=== PATIENT | male | born 1930 | race Caucasian/White ===

== ENCOUNTER 2017-05-29 19:19 | Emergency (ER) | payer MEDICARE ==
[~2017-05-29 19:19] MED LIST: DIGO0.12 PO; FURO20TA PO; K-TA10TA5 PO; METO25 PO; WARF5TAB PO
--- NOTE | 2017-05-29 19:41 | PD ---
HPI Chief Complaint: fall, knee pain Time Seen by Provider: 19:33 Travel History International Travel<30 days: No Contact w/Intl Traveler<30days: No History of Present Illness HPI Patient 87-year-old male presents emergency department for ground-level fall. Patient states he was walking lost his footing and fell forward landing on both knees. EMS stated that they had been noticing some increased confusion and maybe some repetitive questioning. The patient is alert and awake and oriented and able to provide his own history. He states he was walking and just lost his footing and fell down to his knees. Denies any headache chest pain shortness breath abdominal pain loss of consciousness. He denies any use of blood thinners, PFSH Past Medical History Cancer: No Cardiovascular Problems: Yes (LEAKY VALVE, "FLUTTERING") Diabetes: No Endocrine: No Genitourinary: No Hepatitis: No Hiatal Hernia: No Immune Disorder: No Musculoskeletal: No Neurologic: No Psychiatric: Yes (CLAUSTRAPHOBIA) Respiratory: No Thyroid Disease: No Past Surgical History Abdominal Surgery: Yes (appy) AICD: No Body Medical Devices: none Cardiac Surgery: No Ear Surgery: No Endocrine Surgery: No Eye Surgery: No Genitourinary Surgery: Yes (HYDROCELECTOMY) Joint Replacement: No Oral Surgery: No Pacemaker: No Thoracic Surgery: No Social History Tobacco Use: No Substance Use: No Allergies-Medications (Allergen,Severity, Reaction): Coded Allergies: No Known Allergies (Unverified , 05/29/17) Reported Meds & Prescriptions Reported Meds & Active Scripts Active Reported Warfarin Sodium 5 mg (Warfarin Sodium) 5 Mg Tab 2.5 Mg PO WEDNESDAYS Warfarin Sodium 5 mg (Warfarin Sodium) 5 Mg Tab 5 Mg PO DAILY EXCEPT WED K-Tabs (Potassium Chloride) 10 Meq Tab 10 Meq PO DAILY Digoxin 0.125 mg (Digoxin) 0.125 Mg Tab 0.125 Mg PO DAILY Furosemide 20 Mg Tab 20 Mg PO DAILY Metoprolol Tartrate 25 mg (Metoprolol Tartrate) 25 Mg Tab 25 Mg PO BID Review of Systems Except as stated in HPI: all other systems reviewed are Neg Physical Exam Narrative GENERAL: [Well-developed well-nourished no obvious distress SKIN: Focused skin assessment warm/dry. HEAD: Atraumatic. Normocephalic. EYES: Pupils equal and round. No scleral icterus. No injection or drainage. ENT: No nasal bleeding or discharge. Mucous membranes pink and moist. NECK: Trachea midline. No JVD. CARDIOVASCULAR: Regular rate and rhythm. No murmur appreciated. RESPIRATORY: No accessory muscle use. Clear to auscultation. Breath sounds equal bilaterally. GASTROINTESTINAL: Abdomen soft, non-tender, nondistended. Hepatic and splenic margins not palpable. MUSCULOSKELETAL: No obvious deformities. No clubbing. No cyanosis. No edema. Full nontender range of motion of all joints bilaterally lower extremities bilateral upper tremors. Compartments are soft, pulses motor and sensory intact distally. No midline CT or L-spine tenderness. NEUROLOGICAL: Awake and alert. No obvious cranial nerve deficits. Motor grossly within normal limits. Normal speech. PSYCHIATRIC: Appropriate mood and affect; insight and judgment normal. Data Data Last Documented VS Vital Signs Date Time Temp Pulse Resp B/P (MAP) Pulse Ox O2 Delivery O2 Flow Rate FiO2 05/29/17 19:52 65 18 96 Room Air 05/29/17 19:46 98.3 126/67 (86) Orders Orders Electrocardiogram (05/29/17 19:33) Complete Blood Count With Diff (05/29/17 19:33) Comprehensive Metabolic Panel (05/29/17 19:33) B-Type Natriuretic Peptide (05/29/17 19:33) Ckmb (Isoenzyme) Profile (05/29/17 19:33) Troponin I (05/29/17 19:33) Prothrombin Time / Inr (Pt) (05/29/17 19:33) Urinalysis - C+S If Indicated (05/29/17 19:33) Chest, Single Ap (05/29/17 19:33) Ct Brain W/O Iv Contrast(Rout) (05/29/17 19:33) Ct Cerv Spine W/O Contrast (05/29/17 19:33) Ecg Monitoring (05/29/17 19:33) Iv Access Insert/Monitor (05/29/17 19:33) Oximetry (05/29/17 19:33) Sodium Chloride 0.9% Flush (Ns Flush) (05/29/17 19:45) Knee, Complete (4vws) (05/29/17 ) Knee, Complete (4vws) (05/29/17 ) Labs Laboratory Tests Test 05/29/17 19:41 05/29/17 21:30 White Blood Count 10.2 TH/MM3 Red Blood Count 4.19 MIL/MM3 Hemoglobin 13.9 GM/DL Hematocrit 40.7 % Mean Corpuscular Volume 97.1 FL Mean Corpuscular Hemoglobin 33.2 PG Mean Corpuscular Hemoglobin Concent 34.2 % Red Cell Distribution Width 13.9 % Platelet Count 128 TH/MM3 Mean Platelet Volume 7.7 FL Neutrophils (%) (Auto) 79.1 % Lymphocytes (%) (Auto) 12.0 % Monocytes (%) (Auto) 7.9 % Eosinophils (%) (Auto) 0.3 % Basophils (%) (Auto) 0.7 % Neutrophils # (Auto) 8.1 TH/MM3 Lymphocytes # (Auto) 1.2 TH/MM3 Monocytes # (Auto) 0.8 TH/MM3 Eosinophils # (Auto) 0.0 TH/MM3 Basophils # (Auto) 0.1 TH/MM3 CBC Comment DIFF FINAL Differential Comment Prothrombin Time 27.4 SEC Prothromb Time International Ratio 2.4 RATIO Blood Urea Nitrogen 13 MG/DL Creatinine 0.67 MG/DL Random Glucose 103 MG/DL Total Protein 6.5 GM/DL Albumin 3.5 GM/DL Calcium Level 8.1 MG/DL Alkaline Phosphatase 100 U/L Aspartate Amino Transf (AST/SGOT) 25 U/L Alanine Aminotransferase (ALT/SGPT) 24 U/L Total Bilirubin 0.5 MG/DL Sodium Level 127 MEQ/L Potassium Level 3.6 MEQ/L Chloride Level 92 MEQ/L Carbon Dioxide Level 20.2 MEQ/L Anion Gap 15 MEQ/L Estimat Glomerular Filtration Rate 113 ML/MIN Total Creatine Kinase 96 U/L Troponin I 0.03 NG/ML B-Type Natriuretic Peptide 172 PG/ML Urine Color YELLOW Urine Turbidity CLEAR Urine pH 5.5 Urine Specific [place]re[place] 1.011 Urine Protein NEG mg/dL Urine Glucose (UA) NEG mg/dL Urine Ketones NEG mg/dL Urine Occult Blood NEG Urine Nitrite NEG Urine Bilirubin NEG Urine Urobilinogen LESS THAN 2.0 MG/DL Urine Leukocyte Esterase NEG Urine RBC 2 /hpf Urine WBC LESS THAN 1 /hpf Microscopic Urinalysis Comment CULT NOT INDICATED MDM Medical Decision Making Medical Screen Exam Complete: Yes Emergency Medical Condition: Yes Differential Diagnosis Fall, knee pain, head injury, neck injury. Narrative Course patient arrives to the emergency murmur complaining of bilateral knee pain after slip and fall. Initial workup including EKG labs is fairly unremarkable except for a sodium of 127. Patient's CAT scan of head and C-spine negative, x- rays negative: Last [address] 05/29/171932 Signed Impressions: Service Date/Time: May 20:07 - CONCLUSION: 1. No bleed or other acute intracranial abnormality. 2. Chronic white matter changes. Baljinder Myers MD Chest X-Ray 05/29/171932 Signed Impressions: Service Date/Time: , May 29, 2017 20:23 - CONCLUSION: 1. No evidence of acute cardiopulmonary disease. 2. Mild compensated cardiomegaly. Baljinder Myers MD Cervical Spine CT 05/29/171932 Signed Impressions: Service Date/Time: , May 29, 2017 20:09 - CONCLUSION: Intact cervical spine. Degenerative changes as above. Baljinder Myers MD Knee X-Ray 05/29/17 0000 Signed Impressions: Service Date/Time: May 20:29 - CONCLUSION: No fracture, subluxation or significant joint effusion seen of the right knee. Mild degenerative changes and osteopenia. Baljinder Myers MD Knee X-Ray 05/29/17 0000 Signed Impressions: Service Date/Time: May 20:28 - CONCLUSION: Osteopenia and mild degenerative changes. No fracture or other acute abnormality seen of the left knee. Baljinder Myers MD Patient was discussed with Dr. Salter regarding the sodium, he states that patient and he is familiar with always has a somewhat low sodium. He would like to follow-up the patient in the office. At this point he is alert and awake and oriented. He informs me that in the near future there may be more social interventions coming to this patient possibly placement. The is comfortable taking her home at this time. On the subject of his altered mental status, it appears according to during this is chronic intermittent and gradually worsening. Consider dementia. Diagnosis Primary Impression: Fall Additional Impression: Knee pain Disposition: 01 DISCHARGE HOME Condition: Stable Pablito Sargent MD May 29, 2017 19:41
[2017-05-29] MEDS ORDERED: SODIUM CHLORIDE 0.9% FLUSH 10 ML FLUSH IVF PRN (19:45)
[2017-05-29 19:46] VITALS: BP 126/67; PULSE 65; RESP 18; TEMP 98.3; O2SAT 96
[2017-05-29 19:55] LABS: AUTOMATED NEUTROPHIL # 8.1 TH/MM3 (1.8-7.7); BASOPHIL # 0.1 TH/MM3 (0-0.2); BASOPHIL % 0.7 % (0.0-2.0); EOSINOPHIL % 0.3 % (0.0-4.0); HEMATOCRIT 40.7 % (39.0-51.0); HEMO FLAGS DIFF FINAL; LYMPHOCYTE # 1.2 TH/MM3 (1.0-4.8); MEAN CELL VOLUME 97.1 FL (80.0-100.0); MEAN CORPUSCULAR HEMOGLOBIN 33.2 PG (27.0-34.0); MEAN CORPUSCULAR HGB CONC 34.2 % (32.0-36.0); MONO % 7.9 % (0.0-8.0); NEUT % 79.1 % (16.0-70.0); PLATELET COUNT 128 TH/MM3 (150-450); RED BLOOD COUNT 4.19 MIL/MM3 (4.50-5.90); RED CELL DISTRIBUTION WIDTH 13.9 % (11.6-17.2); WHITE BLOOD COUNT 10.2 TH/MM3 (4.0-11.0)
[2017-05-29 20:05] LABS: INTERNATIONAL NORMALIZED RATIO 2.4 RATIO; PROTHROMBIN TIME - PATIENT 27.4 SEC (9.8-11.6)
[2017-05-29 20:26] LABS: ALT (GPT) 24 U/L (12-78); ANION GAP 15 MEQ/L (5-15); AST (GOT) 25 U/L (15-37); BICARBONATE 20.2 MEQ/L (21.0-32.0); BLOOD UREA NITROGEN 13 MG/DL (7-18); CHLORIDE 92 MEQ/L (98-107); GLOMERULAR FILTRATION RATE 113 ML/MIN (>89); POTASSIUM 3.6 MEQ/L (3.5-5.1); SODIUM (NA) 127 MEQ/L (136-145)
[2017-05-29 20:30] LABS: ALKALINE PHOSPHATASE 100 U/L (45-117); TOTAL BILIRUBIN ADULT 0.5 MG/DL (0.2-1.0)
[2017-05-29 20:31] LABS: CREATINE KINASE 96 U/L (39-308)
--- NOTE | 2017-05-29 20:38 | RADRPT ---
EXAM DATE/TIME: 05/29/2017 20:07 [facility] COMPARISON: No previous studies available for comparison. INDICATIONS : Dizziness fall. RADIATION DOSE: 69.15 CTDIvol (mGy) MEDICAL HISTORY : Hypertension. Chronic obstructive pulmonary disease. Leaky heart valve SURGICAL HISTORY : Appendectomy. ENCOUNTER: Initial ACUITY: 1 day PAIN SCALE: 0/10 LOCATION: cranial TECHNIQUE: Multiple contiguous axial images were obtained of the head. Using automated exposure control and adj ustment of the mA and/or kV according to patient size, radiation dose was kept as low as reasonably a chievable to obtain optimal diagnostic quality images. DICOM format image data is available electro nically for review and comparison. FINDINGS: CEREBRUM: The ventricles are normal for age. No evidence of midline shift, mass lesion, hemorrhage or acute in farction. No extra-axial fluid collections are seen. Chronic symmetric low attenuation seen in the p eriventricular white matter. POSTERIOR FOSSA: The cerebellum and brainstem are intact. The 4th ventricle is midline. The cerebellopontine angle i s unremarkable. EXTRACRANIAL: The visualized portion of the orbits is intact. SKULL: The calvaria is intact. No evidence of skull fracture. CONCLUSION: 1. No bleed or other acute intracranial abnormality. 2. Chronic white matter changes. Baljinder Myers MD on May 29, 2017 at 20:36 Board Certified Radiologist. This report was verified electronically.
--- NOTE | 2017-05-29 20:45 | RADRPT ---
EXAM DATE/TIME: 05/29/2017 20:09 [facility] COMPARISON: No previous studies available for comparison. INDICATIONS : Dizzy fall today. RADIATION DOSE: 36.35 CTDIvol (mGy) MEDICAL HISTORY : Hypertension. Chronic obstructive pulmonary disease. Leaky heart valve SURGICAL HISTORY : Appendectomy. ENCOUNTER: Initial ACUITY: 1 day PAIN SCALE: 0/10 LOCATION: neck TECHNIQUE: Volumetric scanning of the cervical spine was performed. Multiplanar reconstructions in the sagittal, coronal and oblique axial planes were performed. Using automated exposure control and adjustment o f the mA and/or kV according to patient size, radiation dose was kept as low as reasonably achievable to obtain optimal diagnostic quality images. DICOM format image data is available electronically f or review and comparison. FINDINGS: Mild degenerative dextroconvex curvature seen of the cervical spine. No subluxation. Vertebral bodies have normal height. No cortical break or trabecular disruption. 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 Multilevel disc space narrowing with uncovertebral and facet osteoarthritis noted, moderate at C3/C4, C5/C6 and C6/C7, severe at C4/C5. There is associated left side predominant foraminal stenosis at C3 /C4 and C4/C5 and mostly right foraminal stenosis at C5/C6 and C6/C7. No high-grade spinal stenosis d emonstrated. Don't see any evidence of an acute disc herniation. CONCLUSION: Intact cervical spine. Degenerative changes as above. Baljinder Myers MD on May 29, 2017 at 20:41 Board Certified Radiologist. This report was verified electronically.
--- NOTE | 2017-05-29 20:57 | RADRPT ---
EXAM DATE/TIME: 05/29/2017 20:23 [facility] COMPARISON: No previous studies available for comparison. INDICATIONS : Patient states he fell today, chest pain. MEDICAL HISTORY : None. SURGICAL HISTORY : None. ENCOUNTER: Initial ACUITY: 1 day PAIN SCORE: 0/10 LOCATION: Bilateral chest FINDINGS: No infiltrate, effusion or pneumothorax. Visualized osseous structures are grossly intact. There is m ild cardiomegaly. CONCLUSION: 1. No evidence of acute cardiopulmonary disease. 2. Mild compensated cardiomegaly. Baljinder Myers MD on May 29, 2017 at 20:55 Board Certified Radiologist. This report was verified electronically.
--- NOTE | 2017-05-29 21:03 | RADRPT ---
EXAM DATE/TIME: 05/29/2017 20:28 [facility] COMPARISON: No previous studies available for comparison. INDICATIONS : Patient states he fell, left knee pain. MEDICAL HISTORY : None. SURGICAL HISTORY : None. ENCOUNTER: Initial ACUITY: 1 day PAIN SCORE: 2/10 LOCATION: Left Knee FINDINGS: Bones are diffusely osteopenic. No fracture. No subluxation. There is mild medial and patellofemoral compartment osteoarthritis. No perceptible joint effusion. Arterial vascular calcification noted. CONCLUSION: Osteopenia and mild degenerative changes. No fracture or other acute abnormality seen of the left kne e. Baljinder Myers MD on May 29, 2017 at 21:01 Board Certified Radiologist. This report was verified electronically.
--- NOTE | 2017-05-29 21:04 | RADRPT ---
EXAM DATE/TIME: 05/29/2017 20:29 [facility] COMPARISON: No previous studies available for comparison. INDICATIONS : Patient states he fell today, right knee pain. MEDICAL HISTORY : None. SURGICAL HISTORY : None. ENCOUNTER: Initial ACUITY: 1 day PAIN SCORE: 2/10 LOCATION: Right Knee FINDINGS: No fracture or subluxation seen in the right knee. Bones are osteopenic. There is mild medial and pat ellofemoral common osteoarthritis. Diffuse arterial atherosclerosis noted. CONCLUSION: No fracture, subluxation or significant joint effusion seen of the right knee. Mild degenerative burroughs ges and osteopenia. Baljinder Myers MD on May 29, 2017 at 21:02 Board Certified Radiologist. This report was verified electronically.
[2017-05-29 22:09] LABS: BLOOD, URINE NEG (NEG); COMMENT (UR) CULT NOT INDICATED; CULTURE IF INDICATED CULT NOT INDICATED; GLUCOSE,URINE NEG (NEG); KETONE, URINE NEG (NEG); NITRITE,URINE NEG (NEG); PH, URINE 5.5 (5.0-8.5); URINE COLOR YELLOW (YELLW/STRAW)
--- NOTE | 2017-05-30 11:29 | EKG ---
Date Performed: 05/29/2017 Time Performed: 19:44:22 PTAGE: 87 years EKG: ATRIAL FIBRILLATION BORDERLINE LEFT AXIS DEVIATION POSSIBLE RIGHT VENTRICULAR CONDUCTION DE LAY MODERATE ST DEPRESSION ABNORMAL ECG NO PREVIOUS TRACING DOCTOR: Kaiser Delcid Interpretating Date/Time 05/30/2017 11:29:10
== END 2017-05-30 04:44 | disposition home or self-care (01) ==
LOC: NEPC 19:19
DX: M25.561 Pain in right knee (principal); M25.562 Pain in left knee; E87.1 Hypo-osmolality and hyponatremia; R41.82 Altered mental status, unspecified; R25.1 Tremor, unspecified; R94.31 Abnormal electrocardiogram [ECG] [EKG]; Z79.01 Long term (current) use of anticoagulants; Z86.79 Personal history of other diseases of the circulatory system; W01.0XXA Fall on same level from slipping, tripping and stumbling without subsequent striking against object, initial encounter
CPT/HCPCS: 70450; 71010; 72125; 73564; 80053; 81001; 82550; 83880; 84484; 85025; 85610; 93005; 99285